=== PATIENT | female | born 1985 | race Caucasian/White ===

== ENCOUNTER → 2017-12-27 | Outpatient (CLI) | payer BC ==
[2017-12-27 13:12] LABS: ABSOLUTE EOSINOPHILS # (AUTO) 0.1 10^3/uL (0.0-0.6); ABSOLUTE LYMPHOCYTES (AUTO) 1.6 10^3/uL (0.5-4.7); ABSOLUTE MONOCYTES (AUTO) 0.4 10^3/uL (0.1-1.4); ABSOLUTE NEUT (AUTO) 4.8 10^3/uL (1.7-8.2); BASOPHILS % (AUTO) 0.3 % (0-2); EOSINOPHILS % (AUTO) 1.1 % (0-6); LYMPHOCYTES % (AUTO) 23.4 % (13-45); MEAN CORPUSCULAR HEMOGLOBIN 30.8 pg (27.0-33.4); MEAN CORPUSCULAR HGB CONC 34.2 g/dL (32.0-36.0); MEAN CORPUSCULAR VOLUME 90 fl (80-97); MONOCYTES % (AUTO) 6.3 % (3-13); PLATELET COUNT 240 10^3/uL (150-450); RED BLOOD COUNT 4.54 10^6/uL (3.72-5.28); SEGMENTED NEUTROPHILS % (AUTO) 68.9 % (42-78); TOTAL CELLS COUNTED % (AUTO) 100 %
[2017-12-27 13:34] LABS: ALANINE AMINOTRANSFERASE 64 U/L (9-52); ALBUMIN 4.3 g/dL (3.5-5.0); ALKALINE PHOSPHATASE 73 U/L (38-126); ANION GAP 9 (5-19); ASPARTATE AMINO TRANSFERASE 44 U/L (14-36); BILIRUBIN,DIRECT 0.1 mg/dL (0.0-0.4); BILIRUBIN,TOTAL 0.2 mg/dL (0.2-1.3); BLOOD UREA NITROGEN 11 mg/dL (7-20); CARBON DIOXIDE 28 mmol/L (22-30); CHLORIDE 105 mmol/L (98-107); GLUCOSE 97 mg/dL (75-110); POTASSIUM 4.5 mmol/L (3.6-5.0); SODIUM 142.3 mmol/L (137-145); TOTAL PROTEIN 7.2 g/dL (6.3-8.2)
--- NOTE | 2017-12-27 14:24 | RADIOLOGY REPORT (SQ) ---
EXAM DESCRIPTION: U/S ABDOMEN LIMITED W/O DOP COMPLETED DATE/TIME: 12/27/2017 1:24 pm REASON FOR STUDY: DISEASE OF GALLBLADDER, UNSPECIFIED (K82.9) K82.9 DISEASE OF GALLBLADDER, UNSPECI FIED COMPARISON: Abdominal ultrasound 05/31/2007 TECHNIQUE: Dynamic and static grayscale images acquired of the abdomen and recorded on PACS. Additio nal selected color Doppler and spectral images recorded. LIMITATIONS: Upper abdominal bowel gas, large body habitus FINDINGS: PANCREAS: Midline pancreas unremarkable LIVER: No masses. Echotexture normal. LIVER VASCULATURE: Normal directional flow of the main portal vein and hepatic veins. GALLBLADDER: No stones. Normal wall thickness. No pericholecystic fluid. ULTRASOUND-DETECTED WEEMS'S SIGN: Negative. INTRAHEPATIC DUCTS AND COMMON DUCT: CBD and intrahepatic ducts normal caliber. No filling defects. D istal most common duct not well seen due to duodenum gas INFERIOR VENA CAVA: Normal flow. AORTA: No aneurysm. RIGHT KIDNEY: Incompletely visualized. No hydronephrosis. No gross right renal stones. PERITONEAL AND RIGHT PLEURAL SPACE: No ascites or effusions. OTHER: No other significant findings. IMPRESSION: No gallstones, gallbladder wall thickening or pericholecystic fluid. TECHNICAL DOCUMENTATION: JOB ID: [id number] [employer]- All Rights Reserved
== END ==
LOC: OD 12:17
PROVIDERS: ATTEND Pediatrics
DX: K82.9 Disease of gallbladder, unspecified (principal)
CPT/HCPCS: 36415; 76705; 80053; 85025

== ENCOUNTER → 2017-12-29 | Outpatient (CLI) | payer BC ==
[2017-12-29 09:26] LABS: ABSOLUTE EOSINOPHILS # (AUTO) 0.1 10^3/uL (0.0-0.6); ABSOLUTE LYMPHOCYTES (AUTO) 1.5 10^3/uL (0.5-4.7); ABSOLUTE MONOCYTES (AUTO) 0.8 10^3/uL (0.1-1.4); ABSOLUTE NEUT (AUTO) 13.6 10^3/uL (1.7-8.2); BASOPHILS % (AUTO) 0.2 % (0-2); EOSINOPHILS % (AUTO) 0.5 % (0-6); HEMATOCRIT 41.7 % (36.0-47.0); HEMOGLOBIN 14.2 g/dL (12.0-15.5); LYMPHOCYTES % (AUTO) 9.4 % (13-45); MEAN CORPUSCULAR HEMOGLOBIN 30.5 pg (27.0-33.4); MEAN CORPUSCULAR HGB CONC 34.1 g/dL (32.0-36.0); MEAN CORPUSCULAR VOLUME 89 fl (80-97); MONOCYTES % (AUTO) 5.3 % (3-13); PLATELET COUNT 242 10^3/uL (150-450); RED BLOOD COUNT 4.66 10^6/uL (3.72-5.28); RED CELL DISTRIBUTION WIDTH 12.9 % (11.5-14.0); SEGMENTED NEUTROPHILS % (AUTO) 84.6 % (42-78); TOTAL CELLS COUNTED % (AUTO) 100 %
[2017-12-29 09:29] LABS: WHITE BLOOD COUNT 16.1 10^3/uL (4.0-10.5)
[2017-12-29 09:52] LABS: ALANINE AMINOTRANSFERASE 48 U/L (9-52); ALBUMIN 4.2 g/dL (3.5-5.0); ALKALINE PHOSPHATASE 70 U/L (38-126); AMYLASE 43 U/L (30-110); ANION GAP 10 (5-19); ASPARTATE AMINO TRANSFERASE 30 U/L (14-36); BILIRUBIN,DIRECT 0.3 mg/dL (0.0-0.4); BILIRUBIN,TOTAL 0.7 mg/dL (0.2-1.3); BLOOD UREA NITROGEN 9 mg/dL (7-20); C-REACTIVE PROTEIN 20.6 mg/L (<10.0); CALCIUM 9.9 mg/dL (8.4-10.2); CARBON DIOXIDE 28 mmol/L (22-30); CHLORIDE 102 mmol/L (98-107); GAMMA-GLUTAMYL TRANSFERASE 139 U/L (8-78); GLUCOSE 105 mg/dL (75-110); LIPASE 32.8 U/L (23-300); POTASSIUM 4.3 mmol/L (3.6-5.0); SODIUM 140.4 mmol/L (137-145); TOTAL PROTEIN 7.2 g/dL (6.3-8.2)
[2017-12-29 10:20] LABS: ERYTHROCYTE SEDIMENTATION RATE 16 mm/hr (0-20)
== END ==
LOC: OD 08:15
PROVIDERS: ATTEND Family Medicine
DX: R10.9 Unspecified abdominal pain (principal)
CPT/HCPCS: 36415; 80053; 82150; 82977; 83690; 85025; 85652; 86140

== ENCOUNTER → 2018-01-10 | Outpatient (CLI) | payer BC ==
--- NOTE | 2018-01-10 17:18 | RADIOLOGY REPORT (SQ) ---
EXAM DESCRIPTION: CHEST PA/LATERAL COMPLETED DATE/TIME: 01/10/2018 5:05 pm REASON FOR STUDY: OTHER SPECIFIED DISEASES OF GALLBLADDER COMPARISON: None. EXAM PARAMETERS: NUMBER OF VIEWS: two views TECHNIQUE: Digital Frontal and Lateral radiographic views of the chest acquired. RADIATION DOSE: NA LIMITATIONS: none FINDINGS: LUNGS AND PLEURA: No acute infiltrates or effusions. . MEDIASTINUM AND HILAR STRUCTURES: No masses or contour abnormalities. HEART AND VASCULAR STRUCTURES: The heart is normal with normal pulmonary vasculature. BONES: No acute findings. HARDWARE: None in the chest. OTHER: No other significant finding. IMPRESSION: NO ACUTE DISEASE. TECHNICAL DOCUMENTATION: JOB ID: [id number] SC-69 2010 [employer]- All Rights Reserved
== END ==
LOC: OD 16:56
PROVIDERS: ATTEND Surgery
DX: K82.8 Other specified diseases of gallbladder (principal)
CPT/HCPCS: 71046

== ENCOUNTER 2018-01-15 12:36 | Emergency (ER) | payer BC ==
[2018-01-15] MEDS ORDERED: NORMAL SALINE 1000 ML 1,000 ML IV ONE ×2 (12:53→15:38)
[2018-01-15] MEDS ORDERED: MORPHINE SULFATE 10 MG/ML INJ IV ONE (12:54)
[2018-01-15] MEDS ORDERED: ONDANSETRON HCL INJ/PF 4 MG/2 ML SDV IV ONE (12:54)
--- NOTE | 2018-01-15 12:55 | ER Document Report ---
ED Medical Screen (RME) - General Chief Complaint: Vomiting Stated Complaint: VOMITING Time Seen by Provider: 01/15/18 12:53 Mode of Arrival: Wheelchair Information source: Patient, Relative TRAVEL OUTSIDE OF THE [place].S. IN LAST 30 DAYS: No - HPI Patient complains to provider of: abd pain Onset: Just prior to arrival - pt had gall bladder d/c'd eaRlier this week. Had severe abd pain and vomiting this am - Related Data Allergies/Adverse Reactions: succinylcholine [Succinylcholine] Allergy (Verified 01/15/18 12:48) Past Medical History - Social History Chew tobacco use (# tins/day): No Frequency of alcohol use: None Drug Abuse: None Pulmonary Medical History: Reports: Hx Asthma Renal/ Medical History: Denies: Hx Peritoneal Dialysis Past Surgical History: Reports: Hx Orthopedic Surgery - LEFT KNEE - Immunizations Hx Diphtheria, Pertussis, Tetanus Vaccination: Yes Physical Exam - Vital signs Vitals: Temp Pulse Resp BP Pulse Ox 98.4 F 82 18 127/68 H 98 01/15/18 12:42 01/15/18 12:42 01/15/18 12:42 01/15/18 12:42 01/15/18 12:42 Course - Vital Signs Vital signs: Temp Pulse Resp BP Pulse Ox 98.4 F 82 18 127/68 H 98 01/15/18 12:42 01/15/18 12:42 01/15/18 12:42 01/15/18 12:42 01/15/18 12:42
[2018-01-15] MEDS ORDERED: HYDROMORPHONE HCL INJ/PF 2 MG/ML AMPULE IV ONE ×2 (13:23→23:21)
[2018-01-15 13:37] LABS: ABSOLUTE LYMPHOCYTES (AUTO) 1.2 10^3/uL (0.5-4.7); ABSOLUTE MONOCYTES (AUTO) 0.9 10^3/uL (0.1-1.4); ABSOLUTE NEUT (AUTO) 10.5 10^3/uL (1.7-8.2); BASOPHILS % (AUTO) 0.1 % (0-2); EOSINOPHILS % (AUTO) 0.2 % (0-6); HEMATOCRIT 39.5 % (36.0-47.0); HEMOGLOBIN 13.7 g/dL (12.0-15.5); LYMPHOCYTES % (AUTO) 9.5 % (13-45); MEAN CORPUSCULAR HGB CONC 34.6 g/dL (32.0-36.0); MEAN CORPUSCULAR VOLUME 90 fl (80-97); MONOCYTES % (AUTO) 7.4 % (3-13); PLATELET COUNT 297 10^3/uL (150-450); RED BLOOD COUNT 4.41 10^6/uL (3.72-5.28); RED CELL DISTRIBUTION WIDTH 12.8 % (11.5-14.0); SEGMENTED NEUTROPHILS % (AUTO) 82.8 % (42-78); TOTAL CELLS COUNTED % (AUTO) 100 %; WHITE BLOOD COUNT 12.7 10^3/uL (4.0-10.5)
[2018-01-15] MEDS ORDERED: FENTANYL CITRATE INJ/PF 100 MCG/2 ML AMPUL IV ONE ×3 (14:03→18:43)
[2018-01-15] MEDS: PROMETHAZINE HCL INJ 50 MG/1 ML VIAL IM PRN ×2 (14:35→19:48)
[2018-01-15 14:42] LABS: ALANINE AMINOTRANSFERASE 111 U/L (9-52); ALKALINE PHOSPHATASE 97 U/L (38-126); ANION GAP 10 (5-19); ASPARTATE AMINO TRANSFERASE 51 U/L (14-36); BILIRUBIN,DIRECT 0.3 mg/dL (0.0-0.4); BILIRUBIN,TOTAL 0.8 mg/dL (0.2-1.3); BLOOD UREA NITROGEN 9 mg/dL (7-20); CALCIUM 8.8 mg/dL (8.4-10.2); CARBON DIOXIDE 26 mmol/L (22-30); CHLORIDE 103 mmol/L (98-107); GLUCOSE 131 mg/dL (75-110); SODIUM 139.1 mmol/L (137-145); TOTAL PROTEIN 6.4 g/dL (6.3-8.2)
[2018-01-15 14:44] LABS: LIPASE < 10.0 U/L (23-300)
--- NOTE | 2018-01-15 15:23 | RADIOLOGY REPORT (SQ) ---
EXAM DESCRIPTION: CT ABD/PELVIS WITH IV ONLY COMPLETED DATE/TIME: 01/15/2018 3:02 pm REASON FOR STUDY: abd pain COMPARISON: Right upper quadrant ultrasound 12/27/2017 TECHNIQUE: CT scan of the abdomen and pelvis performed using helical scanning technique with dynamic intravenous contrast injection. No oral contrast. Images reviewed with lung, soft tissue, and bone windows. Reconstructed coronal and sagittal MPR images reviewed. Delayed images for evaluation of the urinary system also acquired. All images stored on PACS. All CT scanners at this facility use dose modulation, iterative reconstruction, and/or weight based d osing when appropriate to reduce radiation dose to as low as reasonably achievable (ALARA). [facility]: Dose Right [facility]: CareDose [facility]: Dose Right [facility]: Teradose 4D [facility]: Micro[employer]ures CONTRAST TYPE AND DOSE: contrast/concentration: Isovue 370.00 mg/ml; Total Contrast Delivered: 78.0 ml; Total Saline Delivered: 65.0 ml RENAL FUNCTION: None required. The patient is less than 50 years old. RADIATION DOSE: CT Rad equipment meets quality standard of care and radiation dose reduction techniq ues were employed. CTDIvol: 12.9 - 14.4 mGy. DLP: 1407 mGy-cm.. LIMITATIONS: None. FINDINGS: LOWER CHEST: No significant findings. No nodules or infiltrates. Small hiatal hernia LIVER: Normal size. No masses. No dilated ducts. Focal fat at the falciform ligament scan along the gallbladder fossa. SPLEEN: Normal size. No focal lesions. PANCREAS: No masses. No significant calcifications. No adjacent inflammation or peripancreatic fluid collections. Pancreatic duct not dilated. GALLBLADDER: Postcholecystectomy 3 days ago. Surgical clips in the right upper quadrant. There is p ostsurgical change in the gallbladder bed with a small amount of fluid or hemorrhage present. No wel l-circumscribed hematoma or abscess. Small amount of air along the patient's umbilicus. ADRENAL GLANDS: No significant masses or asymmetry. RIGHT KIDNEY AND URETER: No solid masses. No significant calcifications. No hydronephrosis or hyd roureter. LEFT KIDNEY AND URETER: No solid masses. No significant calcifications. No hydronephrosis or hydr oureter. AORTA AND VESSELS: No aneurysm. No dissection. Renal arteries, SMA, celiac without stenosis. RETROPERITONEUM: No retroperitoneal adenopathy, hemorrhage or masses. BOWEL AND PERITONEAL CAVITY: No masses or inflammatory changes. No free fluid or peritoneal masses. APPENDIX: Normal. PELVIS: No mass. Trace free cul-de-sac fluid. Normal bladder. Normal size uterus and ovaries with I UD in place ABDOMINAL WALL: No masses. No hernias. Small amount of air in the umbilicus along the laparoscopic t rocar tract. BONES: No significant or acute findings. OTHER: No other significant finding. IMPRESSION: Postsurgical changes in the right upper quadrant without well-circumscribed hematoma or abscess. If there is clinical suspicion of bile leak, consider hepatobiliary scan. Findings discuss ed with Dr Chavez. TECHNICAL DOCUMENTATION: JOB ID: [id number] Quality ID # [id number]: Final reports with documentation of one or more dose reduction techniques (e.g., Au tomated exposure control, adjustment of the mA and/or kV according to patient size, use of iterative reconstruction technique) 2010 [employer]- All Rights Reserved Reading location - IP/workstation name: [email or web address]
[2018-01-15 15:47] LABS: APPEARANCE,URINE CLEAR; BILIRUBIN,URINE NEGATIVE (NEGATIVE); COLOR,URINE YELLOW; GLUCOSE, URINE NEGATIVE (NEGATIVE); KETONES,URINE 20 mg/dL (NEGATIVE); LEUKOCYTE ESTERASE,URINE NEGATIVE (NEGATIVE); NITRITE,URINE NEGATIVE (NEGATIVE); PROTEIN,URINE NEGATIVE (NEGATIVE); URINE SPECIFIC GRAVITY 1.032; UROBILINOGEN,URINE NEGATIVE mg/dL (<2.0)
[2018-01-15] MEDS ORDERED: PROMETHAZINE HCL INJ 50 MG/1 ML VIAL IM PRN (18:43)
--- NOTE | 2018-01-15 18:47 | ER Document Report ---
ED GI/ <SOFI CLARK - Last Filed: 01/16/18 00:51> - General Mode of Arrival: Wheelchair Information source: Patient TRAVEL OUTSIDE OF THE U.S. IN LAST 30 DAYS: No <MICHA COELLO - Last Filed: 01/16/18 17:51> - General Chief Complaint: Vomiting Stated Complaint: VOMITING Time Seen by Provider: 01/15/18 12:53 Notes: Patient is a 32-year-old female who presents to the ER today for right upper quadrant pain, nausea, vomiting, fever. Patient had her gallbladder removed 3 days ago and states that she had a fever of 101F last night, this morning has been unable to keep anything down including just water. Patient did not have any nausea medication at home. Patient had her surgery at the [facility] in [place]. (MICHA COELLO) - Related Data Allergies/Adverse Reactions: succinylcholine [Succinylcholine] Allergy (Verified 01/15/18 12:48) Past Medical History - General Information source: Patient, Relative - Social History Smoking Status: Current Every Day Smoker Chew tobacco use (# tins/day): No Frequency of alcohol use: None Drug Abuse: None Family History: Reviewed & Not Pertinent Patient has suicidal ideation: No Patient has homicidal ideation: No Pulmonary Medical History: Reports: Hx Asthma Renal/ Medical History: Denies: Hx Peritoneal Dialysis Past Surgical History: Reports: Hx Cholecystectomy, Hx Orthopedic Surgery - LEFT KNEE - Immunizations Hx Diphtheria, Pertussis, Tetanus Vaccination: Yes <MICHA COELLO - Last Filed: 01/16/18 17:51> Review of Systems - Review of Systems Constitutional: See HPI EENT: No symptoms reported Cardiovascular: No symptoms reported Respiratory: No symptoms reported Gastrointestinal: See HPI Genitourinary: No symptoms reported Female Genitourinary: No symptoms reported Musculoskeletal: No symptoms reported Skin: No symptoms reported Hematologic/Lymphatic: No symptoms reported Neurological/Psychological: No symptoms reported <MICHA COELLO - Last Filed: 01/16/18 17:51> Physical Exam <SFOI CLARK - Last Filed: 01/16/18 00:51> <MICHA COELLO - Last Filed: 01/16/18 17:51> - Vital signs Vitals: Temp Pulse Resp BP Pulse Ox 98.4 F 82 18 127/68 H 98 01/15/18 12:42 01/15/18 12:42 01/15/18 12:42 01/15/18 12:42 01/15/18 12:42 - Notes Notes: PHYSICAL EXAMINATION: GENERAL: Uncomfortable appearing, but in no acute distress. HEAD: Atraumatic, normocephalic. EYES: Pupils equal round and reactive to light, extraocular movements intact, sclera anicteric, conjunctiva are normal. NECK: Normal range of motion, supple without lymphadenopathy LUNGS: CTAB and equal. No wheezes rales or rhonchi. HEART: Regular rate and rhythm without murmurs ABDOMEN: Soft, right upper quadrant tenderness. No guarding, no rebound BACK: no vertebral tenderness, normal ROM GI/: no CVA tenderness EXTREMITIES: Normal range of motion, no pitting edema. No cyanosis. NEUROLOGICAL: Cranial nerves grossly intact. Normal sensory/motor exams. PSYCH: Normal mood, normal affect. SKIN: Warm, Dry, normal turgor, 3 incision sites to abdomen consistent with cholecystectomy, well healing, no erythema (MICHA COELLO) Course - Laboratory Result Diagrams: 01/15/18 13:10 01/15/18 14:09 <SOFI CLARK - Last Filed: 01/16/18 00:51> - Laboratory Result Diagrams: 01/15/18 13:10 01/15/18 14:09 <MICHA COELLO - Last Filed: 01/16/18 17:51> - Re-evaluation Re-evalutation: On my reevaluation patient appears flushed, uncomfortable, rechecked her temperature and found she has a fever of 100.5 now. Given Toradol for pain and fever. Concern because of fever, vomiting, Christiano pain even though scans are normal. I called and spoke with Dr. Major, general surgery, recommendation is for patient to be admitted to hospital service with surgical consult because imaging is negative. Spoke to Dr. Kenyon, requests influenza test to be performed. Influenza test is negative, no urinary tract infection, pneumonia, or wound infection. Spoke with Dr. Kenyon again, he accepts patient for transport with pending surgical consult. 01/15/18 23:20 Patient complaining of pain again, medicating. She does have a room assignment. 01/16/18 00:50 Transport team is here. Patient states she has some nausea, giving 12.5 mg of Benadryl IV (she does not respond well to other nausea meds she reports, there will be a big delay if we get another dose of IM Phenergan from the pharmacy at this time according to what I am being told). Patient agreeable with this plan. Fever resolved, no tachycardia, hypotension, or additional concerns. Stable for transport. (SOFI CLARK) 01/15/18 19:44 Patient has continued to have nausea and pain here but no vomiting. I have not p.o. challenge patient because of the fear that she had some type of surgical complication. CAT scan reports no abscess or acute pathology, radiologist recommended HIDA scan which was performed and reports no abnormality, no bile leak, and normal perfusion. Dr. Major, surgeon on-call for her surgeon who performed the procedure was consulted just now and states that her elevated liver enzymes, pain and nausea are all normal variants after cholecystectomy and with normal HIDA scan and CAT scan he sees no reason for transfer or intervention at this time. At this time after all radiology is back in normal, we will p.o. challenge the patient after being given Phenergan again and if she can keep crackers and juice down we will send her home with medication, Phenergan and something for pain. If patient cannot she will be admitted for intractable nausea and vomiting likely. Care handed off to [facility] at this time. 01/15/18 19:46 (MICHA COELLO) - Vital Signs Vital signs: Temp Pulse Resp BP Pulse Ox 99.0 F 69 16 126/77 H 98 01/16/18 00:51 01/16/18 00:51 01/16/18 00:51 01/16/18 00:51 01/16/18 00:51 - Laboratory Laboratory results interpreted by me: 01/15/18 01/15/18 01/15/18 13:10 14:09 15:24 WBC 12.7 H Seg Neutrophils % 82.8 H Lymphocytes % 9.5 L Absolute Neutrophils 10.5 H Glucose 131 H AST 51 H ALT 111 H Lipase < 10.0 L Urine Ketones 20 H Discharge <SOFI CLARK - Last Filed: 01/16/18 00:51> <MICHA COELLO - Last Filed: 01/16/18 17:51> - Discharge Condition: Stable Disposition: [facility] Referrals: MARY RILEY MD [Primary Care Provider] - Follow up as needed
--- NOTE | 2018-01-15 19:23 | RADIOLOGY REPORT (SQ) ---
EXAM DESCRIPTION: NM HIDA SCAN COMPLETED DATE/TIME: 01/15/2018 6:48 pm REASON FOR STUDY: bile leak? post op 3 days from cholecystectomy,n/v COMPARISON: None. RADIONUCLIDE AND DOSE: DOSAGE RADIONUCLIDE: 5.23 millicuries Tc99m Mebrofenin. DOSAGE MORPHINE: Not required. The route of agent administration: Intravenous TECHNIQUE: Serial imaging right upper quadrant up to 60 minutes following injection of radionuclide. Patient imaged AP and Right Lateral. LIMITATIONS: None. FINDINGS: LIVER: Normal visualization without areas of photopenia. INTRA-HEPATIC BILE DUCTS: Temporal visualization normal. No dilatation. COMMON BILE DUCT: Normal without dilatation or delayed visualization. GALLBLADDER: Surgically absent. OTHER: No static or accumulating radiotracer in the right upper quadrant. IMPRESSION: No static or accumulating radiotracer in the right upper quadrant. TECHNICAL DOCUMENTATION: JOB ID: [id number] [place]-72 2010 [employer]- All Rights Reserved Reading location - IP/workstation name: [email or web address]
[2018-01-15] MEDS ORDERED: PROMETHAZINE HCL INJ 50 MG/1 ML VIAL ONE (19:40)
[2018-01-15] MEDS ORDERED: KETOROLAC TROMETHAMINE INJ/PF 30 MG/1 ML SDV IV ONE (20:16)
[2018-01-15 21:33] LABS: A TYPE INFLUENZA AG NEGATIVE (NEGATIVE); B INFLUENZA AG NEGATIVE (NEGATIVE)
[2018-01-15] MEDS ORDERED: NICOTINE 14 MG/24 HR PATCH.TD24 TD ONE (22:41)
[2018-01-16] MEDS ORDERED: DIPHENHYDRAMINE HCL 50 MG/ML VIAL IV ONE (00:52)
[2018-01-16 00:53] VITALS: BP 126/77
== END 2018-01-16 01:00 | disposition short-term general hospital (02) ==
LOC: ER 12:36
DX: R10.11 Right upper quadrant pain (principal); R50.82 Postprocedural fever; R11.2 Nausea with vomiting, unspecified; R74.8 Abnormal levels of other serum enzymes; J45.909 Unspecified asthma, uncomplicated; F17.200 Nicotine dependence, unspecified, uncomplicated; Z90.49 Acquired absence of other specified parts of digestive tract; Z88.8 Allergy status to other drugs, medicaments and biological substances
CPT/HCPCS: 96376; 99284; 96372; 96361; 96374; 96375; 36415; 83690; 85025; 81025; 80053; 81001; 87804; 78226; 74177; A9537; J1200; J3010; J1885; J1170; J2550; J2405; J7030; Q9969

== ENCOUNTER 2019-02-17 21:40 | Emergency (ER) | payer OTHER, BC ==
[2019-02-18] MEDS ORDERED: OXYCODONE HCL IR 5 MG TABLET PO ONE (01:13)
[2019-02-18] MEDS ORDERED: KETOROLAC TROMETHAMINE 60 MG/2 ML SDV IM ONE (01:13)
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
[2019-02-18 01:52] VITALS: BP 123/76
== END 2019-02-18 01:52 | disposition home or self-care (01) ==
LOC: ER 21:40
DX: S29.012A Strain of muscle and tendon of back wall of thorax, initial encounter (principal); M62.830 Muscle spasm of back; M54.2 Cervicalgia; R20.2 Paresthesia of skin; R51 Headache; V47.9XXA Unspecified car occupant injured in collision with fixed or stationary object in traffic accident, initial encounter; J45.909 Unspecified asthma, uncomplicated
CPT/HCPCS: 99283; 96372; J1885

== ENCOUNTER 2019-11-02 20:55 | Outpatient (CLI) | payer BC ==
[2019-11-02 21:51] LABS: APPEARANCE,URINE SLIGHTLY-CLOUDY; BILIRUBIN,URINE NEGATIVE (NEGATIVE); CALCIUM OXALATE CRYSTALS,URINE RARE /HPF; COLOR,URINE YELLOW; GLUCOSE, URINE NEGATIVE (NEGATIVE); KETONES,URINE TRACE mg/dL (NEGATIVE); LEUKOCYTE ESTERASE,URINE NEGATIVE (NEGATIVE); NITRITE,URINE NEGATIVE (NEGATIVE); PROTEIN,URINE NEGATIVE (NEGATIVE); URINE SPECIFIC GRAVITY 1.018; UROBILINOGEN,URINE NEGATIVE mg/dL (<2.0)
[2019-11-02] MEDS ORDERED: RINGERS SOLUTION,LACTATED 1,000 ML IV PRN (22:05)
[2019-11-02 22:06] LABS: URINE AMPHETAMINES SCREEN NEGATIVE; URINE BARBITURATES SCREEN NEGATIVE; URINE BENZODIAZEPINES SCREEN NEGATIVE; URINE COCAINE SCREEN NEGATIVE; URINE MARIJUANA (THC) SCREEN NEGATIVE; URINE METHADONE SCREEN NEGATIVE; URINE PHENCYCLIDINE SCREEN NEGATIVE
[2019-11-02] MEDS ORDERED: CEFTRIAXONE INJ 1000 MG VIAL ONE (22:11)
[2019-11-02] MEDS ORDERED: CEFTRIAXONE 1 GM/D5W RTU 1 GM/50 ML RTUPB IV ONE (22:30)
== END 2019-11-02 23:47 | disposition home or self-care (01) ==
LOC: LC 20:55
PROVIDERS: ATTEND Obstetrics & Gynecology
PROC: 4A1HXCZ Monitoring of Products of Conception, Cardiac Rate, External Approach (ICD-10-PCS; principal; 2019-11-02)
DX: O99.282 Endocrine, nutritional and metabolic diseases complicating pregnancy, second trimester (principal); E86.0 Dehydration; Z3A.22 22 weeks gestation of pregnancy
CPT/HCPCS: 59899; 81001; 80307; J0696

== ENCOUNTER → 2019-11-24 | Day surgery (SDC) | payer BC ==
--- NOTE | 2019-11-24 15:19 | RADIOLOGY REPORT (SQ) ---
EXAM DESCRIPTION: FLUORO/CV PLACEMENT; PICC INSERTION; U/S GUIDE FOR VASCULAR ACCESS COMPLETED DATE/TIME: 11/24/2019 2:26 pm REASON FOR STUDY: OTHER BACTERIAL INFECTIONS OF UNSPECIFIED SITE (A49.8) A49.8 OTHER BACTERIAL INFE CTIONS OF UNSPECIFIED SITE COMPARISON: None. FLUOROSCOPY TIME: 0.14 minutes 1 images saved to PACS. TECHNIQUE: Fluoroscopic and ultrasound guided PICC placement. LIMITATIONS: None. PROCEDURE: After written consent and assessment were obtained, the patient was brought into the fluo roscopy room and placed supine on the table. Ultrasound evaluation of potential access sites were per formed. After successfully identifying a patent vein in the left upper arm, the left arm was prepped and draped in a sterile fashion along with the ultrasound probe. The entry site was anesthetized with 1% lidocaine. A 21 gauge 7 cm needle was advanced through the skin and into the basilic vein under l dorota ultrasound guidance. An ultrasound image was saved to PACS confirming access site. A .018 guide wire was then inserted through the needle and into the venous system. The needle was then removed an d an 11 blade scalpel was used to make a 1cm skin incision. A 5 fr peel-away sheath was advanced ove r the wire and into the venous system. A measurement was then made using the existing wire and live f luoroscopic guidance. The wire was then removed and trimmed. The PICC was advanced through the peel-a way sheath and into the venous system. The peel-away sheath was removed and the catheter was adhered to the patients arm with a stat lock. The catheter was then aspirated and flushed and a sterile wilkinson ge was placed over the access site. A fluoroscopic spot image was saved to PACS confirming the joey ter tip within the SVC. IMPRESSION: SUCCESSFUL PLACEMENT OF A 5 FR DUAL LUMEN 39 CM PICC IN THE LEFT BASILIC VEIN. COMMENT: Patient medication list reviewed: Yes- Quality ID# 130:Eligible professional attests to doc umenting in the medical record they obtained, updated, or reviewed the patient's current medications. . Quality ID 145: Final reports for procedures using fluoroscopy that document radiation exposure renan remberto, or exposure time and number of fluorographic images (if radiation exposure indices are not avail able) Quality ID #76: The patient was prepped and draped using maximum sterile barrier technique including cap, mask, sterile gown, sterile gloves, a large sterile sheet, hand hygiene, and 2% Chlorhexidine fo r cutaneous antisepsis. When ultrasound is used, sterile ultrasound techniques are followed requiring sterile gel and sterile probes. TECHNICAL DOCUMENTATION: JOB ID: [id number] [employer] All Rights Reserved rev-04/08 Reading location - IP/workstation name: [email or web address] [email or web address]
== END ==
LOC: RAD 13:07
PROVIDERS: ATTEND Family Medicine
DX: A49.8 Other bacterial infections of unspecified site (principal)
CPT/HCPCS: 36569; 77001; 76937; C1769; J1642

== ENCOUNTER 2019-12-07 17:44 | Emergency (ER) | payer BC ==
--- NOTE | 2019-12-07 18:46 | ER Document Report ---
ED Medical Screen (RME) - General Chief Complaint: Other Stated Complaint: VANCOMYCIN IV INFUSION Time Seen by Provider: 12/07/19 18:43 Primary Care Provider: MARY RILEY MD [Primary Care Provider] - Follow up as needed Mode of Arrival: Ambulatory Information source: Patient Notes: 34-year-old female that is approximately 27 weeks presents to the emergency department with an outpatient order from physician that is not credentialed at [facility] for a vancomycin infusion. She gives history of otitis externa for the past year and a half. She reports she has been treated multiple times for this infection. It was cultured and noted that she needed vancomycin. Home health was arranged but home health declined to give the medication to the patient be because she has not had any in the emergency department or inpatient. Patient is here for the vancomycin infusion. She has an outpatient order with her she also has outpatient labs. Patient also has a PICC line that is been put in place for 3 and half weeks in preparation for this vancomycin. Patient is also a client of [facility]. I have greeted and performed a rapid initial assessment of this patient. A comprehensive ED assessment and evaluation of the patient, analysis of test results and completion of the medical decision making process will be conducted by additional ED providers. Review of up-to-date notes Vancomycin crosses the placenta and can be detected in serum, amniotic fluid, and cord blood (Jyoti 1991; Patrick 1989). Adverse effects, including sensorineural hearing loss or nephrotoxicity, have not been reported following maternal use during the second or third trimesters of TRAVEL OUTSIDE OF THE [place] IN LAST 30 DAYS: No - Related Data Allergies/Adverse Reactions: succinylcholine [Succinylcholine] Allergy (Verified 12/07/19 18:24) Home Medications: zyzol, wellbutrin, zoloft, pnv Past Medical History - Social History Chew tobacco use (# tins/day): No Frequency of alcohol use: None Drug Abuse: None Pulmonary Medical History: Reports: Hx Asthma Renal/ Medical History: Denies: Hx Peritoneal Dialysis Past Surgical History: Reports: Hx Cholecystectomy, Hx Orthopedic Surgery - LEFT KNEE - Immunizations Hx Diphtheria, Pertussis, Tetanus Vaccination: Yes Physical Exam - Vital signs Vitals: Temp Pulse Resp BP Pulse Ox 98.5 F 93 16 151/81 H 95 12/07/19 18:04 12/07/19 18:04 12/07/19 18:04 12/07/19 18:04 12/07/19 18:04 Course - Vital Signs Vital signs: Temp Pulse Resp BP Pulse Ox 98.5 F 93 16 151/81 H 95 12/07/19 18:04 12/07/19 18:04 12/07/19 18:04 12/07/19 18:04 12/07/19 18:04 Doctor's Discharge - Discharge Referrals: MARY RILEY MD [Primary Care Provider] - Follow up as needed
[2019-12-07] MEDS ORDERED: VANCOMYCIN HCL INJ 1000 MG VIAL IV ONE (23:57)
--- NOTE | 2019-12-08 02:19 | ER Document Report ---
ED General - General Chief Complaint: Other Stated Complaint: VANCOMYCIN IV INFUSION Time Seen by Provider: 12/07/19 18:43 Primary Care Provider: MARY RILEY MD [Primary Care Provider] - Follow up as needed Mode of Arrival: Ambulatory TRAVEL OUTSIDE OF THE [place] IN LAST 30 DAYS: No - HPI Notes: 34-year-old female with history of chronic/recurrent left otitis externa. Patient is been seen by ENT at [facility] and they have cultured a coag negative staph that is multidrug resistant but is sensitive to vancomycin. They recently placed PICC line and recommended that patient start vancomycin at home. Home health agency refuses to administer vancomycin on a regular basis until patient is received 1 dose in ED setting to assure that she would not have allergic reaction. Patient's medical history is otherwise remarkable for the fact she is currently 27 weeks . Her [employer] is fully aware of her current situation and concurs with administration of vancomycin. Patient denies fever, chills, nausea or vomiting. She is feeling good movement and denies any uterine contractions. - Related Data Allergies/Adverse Reactions: succinylcholine [Succinylcholine] Allergy (Verified 12/07/19 18:24) Home Medications: zyzol, wellbutrin, zoloft, pnv Past Medical History - General Information source: Patient - Social History Smoking Status: Former Smoker Chew tobacco use (# tins/day): No Frequency of alcohol use: None Drug Abuse: None Family History: Reviewed & Not Pertinent Patient has suicidal ideation: No Patient has homicidal ideation: No Pulmonary Medical History: Reports: Hx Asthma Renal/ Medical History: Denies: Hx Peritoneal Dialysis Past Surgical History: Reports: Hx Cholecystectomy, Hx Orthopedic Surgery - LEFT KNEE - Immunizations Hx Diphtheria, Pertussis, Tetanus Vaccination: Yes Review of Systems - Review of Systems Notes: Constitutional: Negative for fever. HENT: Negative for sore throat. Eyes: Negative for visual changes. Cardiovascular: Negative for chest pain. Respiratory: Negative for shortness of breath. Gastrointestinal: Negative for abdominal pain, vomiting or diarrhea. Genitourinary: Negative for dysuria. Musculoskeletal: Negative for back pain. Skin: Negative for rash. Neurological: Negative for headaches, weakness or numbness. 10 point ROS negative except as marked above and in HPI. Physical Exam - Vital signs Vitals: Temp Pulse Resp BP Pulse Ox 98.5 F 93 16 151/81 H 95 01/16/20 18:04 12/07/19 18:04 12/07/19 18:04 12/07/19 18:04 12/07/19 18:04 - Notes Notes: GENERAL: Well-developed well-nourished appearing in no acute distress. SKIN: Good turgor no rashes. HEAD: Normocephalic atraumatic. EYES: PERRLA. EOMI. Conjunctivae and sclerae clear. EARS: Right canal and TM clear. Left canal shows redness and some serous drainage with TM clear. NOSE: CLEAR. MOUTH: Moist mucosa. Good dentition. No stridor or edema. No drooling. NECK: Supple. No masses or thyromegaly. No adenopathy. Carotids 2+ without bruits. No JVD. BACK: Symmetrical without tenderness. CHEST: Respirations unlabored. Breath sounds clear and symmetrical. HEART: Regular rhythm. No murmur gallop or rub. ABDOMEN: Gravid uterus consistent with dates. heart tones 160 by Doppler right lower quadrant. Soft nontender without masses, hepatosplenomegaly or re bound. Bowel sounds normally active. No bruits. GENITALIA: Deferred. EXTREMITIES: No edema. No calf tenderness. Cap refill less than 1.5 seconds. Dorsalis pedis and posterior tibial pulses 3+ and symmetrical. NEUROLOGICAL: GCS 15. Alert and oriented x3. Normal gait. Fluent speech. Cranial nerves II through XII intact. Sensorimotor and cerebellar normal. Normal tone. PSYCHIATRIC: Appropriate affect. Course - Re-evaluation Re-evalutation: 12/08/19 00:43 Patient received IV vancomycin infusion here and provided there are no complicating factors anticipate discharge home thereafter. - Vital Signs Vital signs: Temp Pulse Resp BP Pulse Ox 98.5 F 93 16 151/81 H 95 12/07/19 18:04 12/07/19 18:04 12/07/19 18:04 12/07/19 18:04 12/07/19 18:04 Discharge - Discharge Clinical Impression: IUP (intrauterine ), incidental Chronic otitis externa of left ear Qualifiers: Otitis externa type: unspecified type Qualified Code(s): H60.62 - Unspecified chronic otitis externa, left ear Condition: Stable Disposition: HOME, SELF-CARE Additional Instructions: Follow-up with primary care physicians, ENT, infectious disease, [employer] as previously arranged. Return here as needed for new or worsening symptoms: Pain that is worsening or unimproved Uncontrolled vomiting High fever or shaking chills Overall worsening Referrals: MARY RILEY MD [Primary Care Provider] - Follow up as needed
[2019-12-08 02:44] VITALS: BP 127/81
== END 2019-12-08 02:42 | disposition home or self-care (01) ==
LOC: ER 17:44
DX: H60.62 Unspecified chronic otitis externa, left ear (principal); B95.7 Other staphylococcus as the cause of diseases classified elsewhere; Z16.30 Resistance to unspecified antimicrobial drugs; O99.512 Diseases of the respiratory system complicating pregnancy, second trimester; J45.909 Unspecified asthma, uncomplicated; Z3A.27 27 weeks gestation of pregnancy; Z87.891 Personal history of nicotine dependence; Z79.899 Other long term (current) drug therapy; Z88.8 Allergy status to other drugs, medicaments and biological substances
CPT/HCPCS: 99283; 96374; 82962; J3370

== ENCOUNTER 2020-02-14 16:43 | Outpatient (CLI) | payer BC ==
[2020-02-14 17:25] LABS: ABSOLUTE MONOCYTES (AUTO) 0.5 10^3/uL (0.1-1.4); ABSOLUTE NEUT (AUTO) 5.1 10^3/uL (1.7-8.2); BASOPHILS % (AUTO) 0.5 % (0-2); EOSINOPHILS % (AUTO) 0.6 % (0-6); HEMATOCRIT 39.6 % (36.0-47.0); HEMOGLOBIN 13.5 g/dL (12.0-15.5); LYMPHOCYTES % (AUTO) 25.8 % (13-45); MEAN CORPUSCULAR HEMOGLOBIN 28.6 pg (27.0-33.4); MEAN CORPUSCULAR VOLUME 84 fl (80-97); MONOCYTES % (AUTO) 6.7 % (3-13); PLATELET COUNT 339 10^3/uL (150-450); RED BLOOD COUNT 4.71 10^6/uL (3.72-5.28); RED CELL DISTRIBUTION WIDTH 14.7 % (11.5-14.0); SEGMENTED NEUTROPHILS % (AUTO) 66.4 % (42-78); TOTAL CELLS COUNTED % (AUTO) 100 %; WHITE BLOOD COUNT 7.7 10^3/uL (4.0-10.5)
[2020-02-14 17:41] LABS: ALBUMIN 3.7 g/dL (3.5-5.0); ALKALINE PHOSPHATASE 222 U/L (38-126); ANION GAP 12 (5-19); ASPARTATE AMINO TRANSFERASE 57 U/L (14-36); BILIRUBIN,DIRECT 0.3 mg/dL (0.0-0.4); BILIRUBIN,TOTAL 0.5 mg/dL (0.2-1.3); BLOOD UREA NITROGEN 9 mg/dL (7-20); CARBON DIOXIDE 17 mmol/L (22-30); CHLORIDE 104 mmol/L (98-107); GLUCOSE 128 mg/dL (75-110); TOTAL PROTEIN 7.1 g/dL (6.3-8.2); URIC ACID 4.6 mg/dL (2.5-6.2)
[2020-02-14 17:43] LABS: CALCIUM 8.7 mg/dL (8.4-10.2)
[2020-02-14 17:45] LABS: APPEARANCE,URINE CLEAR; BILIRUBIN,URINE NEGATIVE (NEGATIVE); COLOR,URINE YELLOW; GLUCOSE, URINE NEGATIVE (NEGATIVE); KETONES,URINE 20 mg/dL (NEGATIVE); LEUKOCYTE ESTERASE,URINE NEGATIVE (NEGATIVE); NITRITE,URINE NEGATIVE (NEGATIVE); PROTEIN,URINE NEGATIVE (NEGATIVE); URINE SPECIFIC GRAVITY 1.011; UROBILINOGEN,URINE NEGATIVE mg/dL (<2.0)
[2020-02-14 17:59] LABS: UR PRO/CREAT RATIO RESULT 0.2 mg/mg (0.0-0.2); URINE CREATININE 103.7 mg/dL (16-327); URINE PROTEIN 18.2 mg/dL (<12)
[2020-02-14 18:03] LABS: URINE AMPHETAMINES SCREEN NEGATIVE; URINE BARBITURATES SCREEN NEGATIVE; URINE BENZODIAZEPINES SCREEN NEGATIVE; URINE COCAINE SCREEN NEGATIVE; URINE MARIJUANA (THC) SCREEN NEGATIVE; URINE METHADONE SCREEN NEGATIVE; URINE PHENCYCLIDINE SCREEN NEGATIVE
--- NOTE | 2020-02-14 18:33 | Non Stress Test Report ---
Non Stress Test Datetime Report Generated by CPN: 02/14/2020 18:33 DEMOGRAPHIC EGA NST: 37.3 INDICATION Indication for Study (NST) Other: HTN, provider orders MONITORING Monitor Explained: Monitor Explained; Test Explained; Patient Verbalized Understanding Time on Monitor: 02/14/2020 17:12 Time off Monitor: 02/14/2020 18:08 NST Duration: 56 NST INTERVENTIONS NST Interventions: PO Hydration Physician Notified NST: Davidson MD BABY A: [id number] BABY A Movement : Present Contraction Frequency : 7-9 FHR Baseline : 140 Accelerations : 15X15 Decelerations : None Variability : Moderate 6-25bpm NST Review: Meets Criteria for Reactive NST NST Review and Verified By : Nany Camp RNC NST Results: Reactive NST REPORT Report Trigger: Send Report
== END 2020-02-14 18:35 | disposition home or self-care (01) ==
LOC: LC 16:43
PROVIDERS: ATTEND Student in an Organized Health Care Education/Training Program
PROC: 4A1HXCZ Monitoring of Products of Conception, Cardiac Rate, External Approach (ICD-10-PCS; principal; 2020-02-14)
DX: O16.3 Unspecified maternal hypertension, third trimester (principal); Z3A.37 37 weeks gestation of pregnancy
CPT/HCPCS: 36415; 59025; 80053; 80307; 81001; 82570; 83615; 84156; 84550; 85025

== ENCOUNTER 2020-02-15 17:14 | Outpatient (CLI) | payer BC ==
[2020-02-15 18:39] LABS: ABSOLUTE LYMPHOCYTES (AUTO) 1.8 10^3/uL (0.5-4.7); ABSOLUTE MONOCYTES (AUTO) 0.4 10^3/uL (0.1-1.4); ABSOLUTE NEUT (AUTO) 4.1 10^3/uL (1.7-8.2); BASOPHILS % (AUTO) 0.5 % (0-2); EOSINOPHILS % (AUTO) 0.4 % (0-6); HEMATOCRIT 38.6 % (36.0-47.0); HEMOGLOBIN 13.5 g/dL (12.0-15.5); LYMPHOCYTES % (AUTO) 28.3 % (13-45); MEAN CORPUSCULAR HGB CONC 35.1 g/dL (32.0-36.0); MEAN CORPUSCULAR VOLUME 83 fl (80-97); MONOCYTES % (AUTO) 6.9 % (3-13); PLATELET COUNT 307 10^3/uL (150-450); RED BLOOD COUNT 4.67 10^6/uL (3.72-5.28); RED CELL DISTRIBUTION WIDTH 14.5 % (11.5-14.0); SEGMENTED NEUTROPHILS % (AUTO) 63.9 % (42-78); TOTAL CELLS COUNTED % (AUTO) 100 %; WHITE BLOOD COUNT 6.5 10^3/uL (4.0-10.5)
[2020-02-15 18:50] LABS: URINE PROTEIN 8.6 mg/dL (<12)
[2020-02-15 18:54] LABS: 24 HOUR URINE PROTEIN RESULT 53 mg/day (42-225)
[2020-02-15 19:08] LABS: ALBUMIN 3.7 g/dL (3.5-5.0); ALKALINE PHOSPHATASE 234 U/L (38-126); ASPARTATE AMINO TRANSFERASE 52 U/L (14-36); BILIRUBIN,DIRECT 0.3 mg/dL (0.0-0.4); BILIRUBIN,TOTAL 0.5 mg/dL (0.2-1.3); TOTAL PROTEIN 7.1 g/dL (6.3-8.2)
== END 2020-02-15 19:51 | disposition home or self-care (01) ==
LOC: LC 17:14
PROVIDERS: ATTEND Obstetrics & Gynecology Gynecology
PROC: 4A1HXCZ Monitoring of Products of Conception, Cardiac Rate, External Approach (ICD-10-PCS; principal; 2020-02-15)
DX: O16.3 Unspecified maternal hypertension, third trimester (principal); O24.410 Gestational diabetes mellitus in pregnancy, diet controlled; Z3A.37 37 weeks gestation of pregnancy
CPT/HCPCS: 36415; 59025; 80076; 82962; 83036; 83615; 84156; 85025

== ENCOUNTER → 2020-02-20 | Outpatient (CLI) | payer BC ==
[2020-02-20 10:42] LABS: ABSOLUTE LYMPHOCYTES (AUTO) 1.8 10^3/uL (0.5-4.7); ABSOLUTE MONOCYTES (AUTO) 0.4 10^3/uL (0.1-1.4); ABSOLUTE NEUT (AUTO) 4.3 10^3/uL (1.7-8.2); BASOPHILS % (AUTO) 0.3 % (0-2); EOSINOPHILS % (AUTO) 0.4 % (0-6); HEMATOCRIT 38.7 % (36.0-47.0); HEMOGLOBIN 13.3 g/dL (12.0-15.5); LYMPHOCYTES % (AUTO) 27.2 % (13-45); MEAN CORPUSCULAR HEMOGLOBIN 28.5 pg (27.0-33.4); MEAN CORPUSCULAR HGB CONC 34.3 g/dL (32.0-36.0); MEAN CORPUSCULAR VOLUME 83 fl (80-97); MONOCYTES % (AUTO) 6.7 % (3-13); PLATELET COUNT 288 10^3/uL (150-450); RED BLOOD COUNT 4.66 10^6/uL (3.72-5.28); SEGMENTED NEUTROPHILS % (AUTO) 65.4 % (42-78); TOTAL CELLS COUNTED % (AUTO) 100 %; WHITE BLOOD COUNT 6.6 10^3/uL (4.0-10.5)
[2020-02-20 10:47] LABS: APPEARANCE,URINE CLEAR; BILIRUBIN,URINE NEGATIVE (NEGATIVE); COLOR,URINE YELLOW; GLUCOSE, URINE NEGATIVE (NEGATIVE); KETONES,URINE NEGATIVE (NEGATIVE); LEUKOCYTE ESTERASE,URINE NEGATIVE (NEGATIVE); NITRITE,URINE NEGATIVE (NEGATIVE); PROTEIN,URINE NEGATIVE (NEGATIVE); URINE SPECIFIC GRAVITY 1.011; UROBILINOGEN,URINE NEGATIVE mg/dL (<2.0)
[2020-02-20 11:04] LABS: URINE AMPHETAMINES SCREEN NEGATIVE; URINE BARBITURATES SCREEN NEGATIVE; URINE BENZODIAZEPINES SCREEN NEGATIVE; URINE COCAINE SCREEN NEGATIVE; URINE MARIJUANA (THC) SCREEN NEGATIVE; URINE METHADONE SCREEN NEGATIVE; URINE PHENCYCLIDINE SCREEN NEGATIVE
[2020-02-20 11:08] LABS: ALBUMIN 3.5 g/dL (3.5-5.0); ALKALINE PHOSPHATASE 220 U/L (38-126); ANION GAP 8 (5-19); ASPARTATE AMINO TRANSFERASE 35 U/L (14-36); BILIRUBIN,DIRECT 0.2 mg/dL (0.0-0.4); BILIRUBIN,TOTAL 0.4 mg/dL (0.2-1.3); BLOOD UREA NITROGEN 9 mg/dL (7-20); CALCIUM 9.3 mg/dL (8.4-10.2); CARBON DIOXIDE 21 mmol/L (22-30); CHLORIDE 103 mmol/L (98-107); GLUCOSE 94 mg/dL (75-110); POTASSIUM 4.2 mmol/L (3.6-5.0); TOTAL PROTEIN 6.8 g/dL (6.3-8.2); URIC ACID 4.8 mg/dL (2.5-6.2)
== END ==
LOC: OD 10:09
PROVIDERS: ATTEND Obstetrics & Gynecology
DX: Z01.818 Encounter for other preprocedural examination (principal)
CPT/HCPCS: 36415; 80053; 80307; 81001; 83615; 84550; 85025

== ENCOUNTER 2020-02-26 05:30 | Inpatient (IN) | payer BC ==
[~2020-02-26 05:30] MED LIST: CEFAZOLIN SODIUM 2 GM in DEXTROSE 5%-WATER 100 ML IV PRN
[2020-02-26] MEDS ORDERED: DIPH/PERTUSS(ACELL)/TETANUS VAC/PF 0.5 ML SYR (>=10YO) IM PRN ×2 (05:59→09:33)
[2020-02-26] MEDS ORDERED: SIMETHICONE 80 MG TAB.CHEW PO PRN ×2 (05:59→09:33)
[2020-02-26] MEDS ORDERED: DEXTROSE 50%-WATER 25 GM/50 ML DISP.SYRIN IV PRN ×2 (05:59)
[2020-02-26] MEDS ORDERED: PROMETHAZINE HCL INJ 25 MG/1 ML VIAL IV PRN ×3 (05:59→09:33)
[2020-02-26] MEDS ORDERED: MEASLES,MUMPS&RUBELLA VACC/PF 0.5 ML VIAL SUBCUT PRN ×2 (05:59→09:33)
[2020-02-26] MEDS ORDERED: HYDROMORPHONE HCL INJ/PF 2 MG/ML AMPULE IV PRN (05:59)
[2020-02-26] MEDS ORDERED: ACETAMINOPHEN 325 MG TABLET PO PRN ×2 (05:59→09:33)
[2020-02-26] MEDS ORDERED: OXYTOCIN/NORMAL SALINE 20 UNIT/1,000 ML RTUINJ IV PRN ×2 (05:59→09:33)
[2020-02-26] MEDS ORDERED: OXYCODONE-ACETAMINOPHEN 5-325 MG TABLET PO PRN ×3 (05:59→09:33)
[2020-02-26] MEDS ORDERED: NORMAL SALINE 1000 ML 1,000 ML IV PRN (05:59)
[2020-02-26] MEDS ORDERED: GLUCAGON,HUMAN RECOMB 1 MG INJ SUBCUT PRN (05:59)
[2020-02-26] MEDS ORDERED: DEXTROSE 40% GEL 15 GM TUBE PO PRN ×2 (05:59)
[2020-02-26] MEDS ORDERED: RINGERS SOLUTION,LACTATED 1,000 ML IV ONE (06:05)
[2020-02-26] MEDS ORDERED: CEFAZOLIN INJ 1 GM VIAL ONE (06:36)
[2020-02-26] MEDS ORDERED: FENTANYL CITRATE INJ/PF 100 MCG/2 ML AMPUL ONE (07:01)
[2020-02-26] MEDS ORDERED: PROPOFOL INJ 200 MG/20 ML VIAL IV ONE (07:01)
[2020-02-26] MEDS ORDERED: OXYTOCIN 10 UNIT/ML VIAL ONE (07:01)
[2020-02-26] MEDS ORDERED: OXYTOCIN/NORMAL SALINE 20 UNIT/1,000 ML RTUINJ ONE (07:02)
[2020-02-26] MEDS ORDERED: ONDANSETRON HCL INJ/PF 4 MG/2 ML SDV ONE (07:02)
[2020-02-26] MEDS ORDERED: MIDAZOLAM 2 MG/2 ML INJ ONE (07:02)
[2020-02-26] MEDS ORDERED: FENTANYL CITRATE INJ/PF 100 MCG/2 ML AMPUL IV PRN ×3 (08:29)
[2020-02-26] MEDS ORDERED: DIPHENHYDRAMINE HCL 50 MG/ML VIAL IV PRN (08:29)
[2020-02-26] MEDS ORDERED: MORPHINE SULFATE 10 MG/ML INJ IV PRN (08:29)
[2020-02-26] MEDS ORDERED: MEPERIDINE HCL/PF INJ 25 MG/1 ML DISP.SYRIN IV PRN (08:29)
[2020-02-26] MEDS ORDERED: NALBUPHINE HCL INJ 10 MG/1 ML AMPULE IM ONE (08:38)
[2020-02-26] MEDS ORDERED: ACETAMINOPHEN 1,000 MG/100 ML RTUPB IV PRN (09:33)
[2020-02-26] MEDS ORDERED: RINGERS SOLUTION,LACTATED 1,000 ML IV PRN (09:33)
--- NOTE | 2020-02-26 09:40 | Operative Report ---
Operative Report DATE OF SURGERY: 02/26/20 PREOPERATIVE DIAGNOSIS: Patient desires repeat to prevent use risk of uterine rupture and a tubal ligation. POSTOPERATIVE DIAGNOSIS: Same OPERATION: Repeat via low transverse uterine incision tubal ligation with Filshie clips SURGEON: MAURI BAPTISTE ANESTHESIA: Spinal TISSUE REMOVED OR ALTERED: Placenta COMPLICATIONS: None ESTIMATED BLOOD LOSS: 300 cc INTRAOPERATIVE FINDINGS: Viable male normal uterus tubes and ovaries PROCEDURE: Patient was taken to the OR and placed in supine position after her spinal anesthesia. She is prepared and draped in sterile fashion. Huerta was placed for drainage of the bladder. Low transverse incision was made and carried down the level of the fascia. The old scar was completely excised. The fascial incision was made with knife and extended bilaterally with curved Joshua scissors. The fascia was off the rectus muscles using sharp and blunt dissection. The rectus muscles are in the midline. The peritoneum was entered without incident. Bladder blade was placed in uterine segment was identified. A low transverse incision was made creating a bladder flap. Bladder blade was placed low transverse uterine incision was made with the knife and extended with fingertips. The baby was delivered with some fundal pressure. Mouth and nose were suctioned free. The cord is doubly clamped and cut. Baby is passed off to the professor of political science in attendance. The placenta was manually extracted with trailing membranes. The uterus was externalized wrapped in a moist lap sponge. Uterine contents wiped free. Uterus was closed with a running locking layer of 0 chromic suture using the second layer to imbricate the first completing a double layer closure of the uterus. The serosa was closed with a running 2-0 chromic stitch. Filshie clips were placed across the mid isthmic portion of each tube. The pelvis was irrigated and suctioned free of fluid the uterus was replaced in the abdomen. The abdominal wall peritoneum was closed with running 2-0 chromic stitch. Fascia was closed with a running 0 Vicryl in 2 segments. Jayleen's layer was brought together with 0 plain gut stitch and the skin was closed with running subcuticular 4-0 undyed Vicryl stitch. The wound was dressed mother and baby did well.
[2020-02-26] MEDS ORDERED: KETOROLAC TROMETHAMINE INJ/PF 30 MG/1 ML SDV ONE (09:46)
[2020-02-26] MEDS ORDERED: ACETAMINOPHEN 1,000 MG/100 ML RTUPB IV ONE (09:46)
[2020-02-26] MEDS ORDERED: HYDROMORPHONE HCL INJ/PF 2 MG/ML AMPULE ONE (10:32)
[2020-02-26] MEDS: HYDROMORPHONE HCL INJ/PF 2 MG/ML AMPULE IV PRN ×2 (10:34→14:46)
[2020-02-26] MEDS: PRENATAL VITAMIN W DHA CAPSULE PO SCH (11:44)
[2020-02-26] MEDS: DOCUSATE SODIUM 100 MG CAPSULE PO SCH ×2 (11:44→18:27)
[2020-02-26] MEDS: OXYCODONE-ACETAMINOPHEN 5-325 MG TABLET PO PRN ×3 (11:45→22:37)
[2020-02-26 12:02] LABS: HEMATOCRIT 37.6 % (36.0-47.0); MEAN CORPUSCULAR HEMOGLOBIN 28.8 pg (27.0-33.4); MEAN CORPUSCULAR HGB CONC 34.4 g/dL (32.0-36.0); MEAN CORPUSCULAR VOLUME 84 fl (80-97); PLATELET COUNT 266 10^3/uL (150-450); RED CELL DISTRIBUTION WIDTH 15.3 % (11.5-14.0); WHITE BLOOD COUNT 13.3 10^3/uL (4.0-10.5)
[2020-02-26] MEDS ORDERED: KETOROLAC TROMETHAMINE INJ/PF 30 MG/1 ML SDV IV SCH (14:00)
[2020-02-26] MEDS ORDERED: DOCUSATE SODIUM 100 MG CAPSULE PO SCH (18:00)
[2020-02-26] MEDS: KETOROLAC TROMETHAMINE INJ/PF 30 MG/1 ML SDV IV SCH (18:27)
[2020-02-27] MEDS: KETOROLAC TROMETHAMINE INJ/PF 30 MG/1 ML SDV IV SCH (01:46)
[2020-02-27] MEDS: OXYCODONE-ACETAMINOPHEN 5-325 MG TABLET PO PRN ×4 (06:13→22:33)
[2020-02-27 07:14] LABS: HEMATOCRIT 34.9 % (36.0-47.0); MEAN CORPUSCULAR HEMOGLOBIN 28.9 pg (27.0-33.4); MEAN CORPUSCULAR HGB CONC 34.3 g/dL (32.0-36.0); MEAN CORPUSCULAR VOLUME 84 fl (80-97); PLATELET COUNT 256 10^3/uL (150-450); RED BLOOD COUNT 4.14 10^6/uL (3.72-5.28); RED CELL DISTRIBUTION WIDTH 15.1 % (11.5-14.0); WHITE BLOOD COUNT 9.5 10^3/uL (4.0-10.5)
[2020-02-27] MEDS ORDERED: PRENATAL VITAMIN W DHA CAPSULE PO SCH (10:00)
[2020-02-27] MEDS: PRENATAL VITAMIN W DHA CAPSULE PO SCH (10:13)
[2020-02-27] MEDS: IBUPROFEN 800 MG TABLET PO SCH ×3 (10:13→20:06)
[2020-02-27] MEDS: DOCUSATE SODIUM 100 MG CAPSULE PO SCH ×2 (10:13→17:15)
--- NOTE | 2020-02-27 10:23 | PDOC PROGRESS REPORT ---
Subjective-OB Progress Note for:: 02/27/20 Subjective: 34yo G2 now P2 s/p repeat with tubal ligation ppd1. Pt ambulating and voiding without difficulty. Reports pain well controlled with medications. No concerns today Physical Exam (OB) Vital Signs: Temp Pulse Resp BP Pulse Ox 97.9 F 61 16 122/61 100 02/27/20 07:20 02/27/20 07:20 02/27/20 07:20 02/27/20 07:20 02/27/20 07:20 Intake & Output 02/26/20 02/27/20 02/28/20 06:59 06:59 06:59 Intake Total 3120 Output Total 3500 Balance -380 Weight 83.915 kg - General General Appearance: Appears well In distress: None - PIH/Pre-Eclampsia DTR's: 1 + Clonus: Negative Headache: Absent Epigastric Pain: No Visual Changes: No - Dressing Removed: No Incision: Dressing Closure Type: op site - Lochia Lochia Amount: Scant < 10 ml Lochia Color: Rubra/Red - Abdomen Description: Soft, Round Hernia Present: No Fundal Description: Firm, Midline Fundal Height: u/u - u/2 - Respiratory Respiratory Status: No respiratory distress - Extremities Upper extremity: Normal inspection Lower extremities: Normal inspection - Neurological Cognition: Normal Orientation: AAOx4 - Psychological Associated symptoms: Normal affect, Normal mood Objective-Diagnostic Laboratory: 02/27/20 06:37 02/26/20 02/27/20 02/27/20 11:54 06:37 06:37 WBC 13.3 H 9.5 RBC 4.50 4.14 Hgb 13.0 12.0 Hct 37.6 34.9 L MCV 84 84 MCH 28.8 28.9 MCHC 34.4 34.3 RDW 15.3 H 15.1 H Plt Count 266 256 Blood Type A NEGATIVE Assessment and Plan(PN) - Assessment and Plan (1) S/P repeat low transverse Is this a current diagnosis for this admission?: Yes Plan: Routine pp care, continue to monitor for s/s of infection (2) Tubal ligation status Is this a current diagnosis for this admission?: Yes Plan: Routine pp care (3) Anxiety during in third trimester, antepartum Is this a current diagnosis for this admission?: Yes Plan: denies h/s ideation, has provider who manages her medication and states it is well controlled. Continue to monitor for s/s of depression (4) Blood type, Rh negative Is this a current diagnosis for this admission?: Yes Plan: needs rhogam prior to discharge - Time Spent with Patient Time with patient: Less than 15 minutes Medications reviewed and adjusted accordingly: Yes - Disposition Anticipated Discharge: Home Within: within 24 hours
[2020-02-27] MEDS ORDERED: IBUPROFEN 800 MG TABLET PO SCH (12:00)
[2020-02-28] MEDS: IBUPROFEN 800 MG TABLET PO SCH ×2 (02:06→09:32)
[2020-02-28] MEDS: OXYCODONE-ACETAMINOPHEN 5-325 MG TABLET PO PRN ×2 (02:41→07:53)
[2020-02-28] MEDS: PRENATAL VITAMIN W DHA CAPSULE PO SCH (09:32)
[2020-02-28] MEDS: DOCUSATE SODIUM 100 MG CAPSULE PO SCH (09:32)
--- NOTE | 2020-02-28 09:54 | PDOC DISCHARGE SUMMARY ---
Impression - Admit/DC Date/PCP Admission Date/Primary Care Provider: 02/26/20 05:30 NEDA MARQUES MD Discharge Date: 02/28/20 - Discharge Diagnosis (1) S/P repeat low transverse Is this a current diagnosis for this admission?: Yes (2) Tubal ligation status Is this a current diagnosis for this admission?: Yes (3) Anxiety during in third trimester, antepartum Is this a current diagnosis for this admission?: Yes (4) Blood type, Rh negative Is this a current diagnosis for this admission?: Yes - Additional Information Resuscitation Status: Full Code Discharge Diet: Regular Discharge Activity: Balance Activity w/Rest, No Lifting Over 10 Pounds, No Lifting/Push/Pulling, Pelvic Rest, No tub bath Referrals: NEDA MARQUES MD [Primary Care Provider] - Prescriptions: Oxycodone HCl/Acetaminophen [Percocet 5-325 mg Tablet] 1 tab PO Q4HP PRN #30 tablet PRN Reason: Ibuprofen [Motrin 800 mg Tablet] 800 mg PO Q8HP PRN #60 tablet PRN Reason: Home Medications: Bupropion HCl [Wellbutrin Sr 150 mg Tablet] 1 tab PO Q12 11/02/19 Sertraline HCl [Zoloft 50 mg Tablet] 50 mg PO DAILY 11/02/19 Levocetirizine Dihydrochloride [Xyzal] 1 cap PO DAILY 02/14/20 Ibuprofen [Motrin 800 mg Tablet] 800 mg PO Q8HP PRN #60 tablet 02/28/20 Oxycodone HCl/Acetaminophen [Percocet 5-325 mg Tablet] 1 tab PO Q4HP PRN #30 tablet 02/28/20 Results Laboratory Results: WBC 9.5 10^3/uL (4.0-10.5) 02/27/20 06:37 RBC 4.14 10^6/uL (3.72-5.28) 02/27/20 06:37 Hgb 12.0 g/dL (12.0-15.5) 02/27/20 06:37 Hct 34.9 % (36.0-47.0) L 02/27/20 06:37 MCV 84 fl (80-97) 02/27/20 06:37 MCH 28.9 pg (27.0-33.4) 02/27/20 06:37 MCHC 34.3 g/dL (32.0-36.0) 02/27/20 06:37 RDW 15.1 % (11.5-14.0) H 02/27/20 06:37 Plt Count 256 10^3/uL (150-450) 02/27/20 06:37 POC Glucose 84 mg/dL (70-110) 02/26/20 06:10 Blood Type A NEGATIVE 02/27/20 06:37 Antibody Screen NEGATIVE 02/25/20 10:20 Screen NEGATIVE 02/27/20 06:37
[2020-02-28 11:39] VITALS: BP 114/65
== END 2020-02-28 12:08 | disposition home or self-care (01) | DRG 785 ==
LOC: 2S 05:30
PROVIDERS: ADMIT Obstetrics & Gynecology; ATTEND Obstetrics & Gynecology
PROC: 0UL70CZ Occlusion of Bilateral Fallopian Tubes with Extraluminal Device, Open Approach (ICD-10-PCS; 2020-02-26)
PROC: 10D00Z1 Extraction of Products of Conception, Low, Open Approach (ICD-10-PCS; principal; 2020-02-26 07:45)
PROC: 3E0234Z Introduction of Serum, Toxoid and Vaccine into Muscle, Percutaneous Approach (ICD-10-PCS; 2020-02-27)
DX: O34.211 Maternal care for low transverse scar from previous cesarean delivery (principal); O24.425 Gestational diabetes mellitus in childbirth, controlled by oral hypoglycemic drugs; O99.344 Other mental disorders complicating childbirth; O26.893 Other specified pregnancy related conditions, third trimester; F41.8 Other specified anxiety disorders; N85.8 Other specified noninflammatory disorders of uterus; Z67.11 Type A blood, Rh negative; Z3A.39 39 weeks gestation of pregnancy; Z37.0 Single live birth; Z30.2 Encounter for sterilization
CPT/HCPCS: 1961; 36415; 82962; 85027; 85461; 86850; 86900; 86901; 94760; J0131; J0690; J1170; J1885; J2250; J2405; J2590; J2704; J2790; J3010; J3490; J7060; J7120